=== PATIENT | female | born 1960 | race Caucasian/White ===

== ENCOUNTER → 2017-01-22 | Outpatient (CLI) | payer BC ==
[~2017-01-22] MED LIST: ETHY1TAB6 PO; MULT-506 PO
--- NOTE | 2017-01-23 13:13 | MAMMOGRAPHY REPORT ---
BILATERAL DIGITAL SCREENING MAMMOGRAM TOMOSYNTHESIS WITH CAD: 01/22/2017 CLINICAL HISTORY: Routine screening. Patient has no complaints. TECHNIQUE: Breast tomosynthesis in addition to standard 2D mammography was performed. Current study was also evaluated with a Computer Aided Detection (CAD) system. COMPARISON: Comparison is made to exams dated: 01/27/2016 mammogram, 01/27/2015 mammogram, 01/26/2014 m ammogram, 01/27/2013 mammogram, 02/01/2012 mammogram, and 01/30/2011 mammogram - [facility]. BREAST COMPOSITION: The tissue of both breasts is heterogeneously dense, which may obscure small mas ses. FINDINGS: The parenchymal pattern is unchanged. No developing mass, architectural distortion or clus ter of suspicious microcalcifications is seen in either breast. IMPRESSION: ACR BI-RADS CATEGORY 2: BENIGN There is no mammographic evidence of malignancy. A 1 year screening mammogram is recommended. The pa tient will receive written notification of the results. Approximately 10% of breast cancers are not detected with mammography. A negative mammographic report should not delay biopsy if a clinically suggestive mass is present. Norma Black M.D. ay/:01/22/2017 16:49:53 [employer]: Bobbi WEATHERS(R)(M), [facility] letter sent: Normal 1/2 BI-RADS Code: ACR BI-RADS Category 2: Benign
== END | disposition home or self-care (01) ==
LOC: C.MAMM 15:18
PROVIDERS: ATTEND Family Medicine
DX: Z12.31 Encounter for screening mammogram for malignant neoplasm of breast (principal)

== ENCOUNTER 2017-12-30 22:57 | Emergency (ER) | payer BC, OTHER ==
[~2017-12-30] VITALS: Ht 162.6 cm; Wt 61.5 kg
[2017-12-30 23:03] VITALS: TEMP 36.7; Ht 162.6 cm; Wt 61.5 kg
--- NOTE | 2017-12-30 23:27 | EMERGENCY ROOM VISIT NOTE ---
History Report prepared by Sheila: Rajani Hu Under the Supervision of: Dr. Ryan Becerra M.D. 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 She states she was taking her contacts out when she noticed blood in her left eyeball. Moving her eyes to the right hurts her but she rates it as a 1/10 in severity, The patient notes she is not on any blood thinning medications. She has been in baseline health lately. She has not suffered trauma. She does not take any blood thinners. She has not noticed and issues with her vision. 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 A total of 10 systems reviewed and were otherwise negative. Past Medical & Surgical Medical Problems: (1) KHADAR EMMY LOWER JAW BONE (2) Benign neoplasm of ovary (3) No Known Active Medical Problems Family History No pertinent family history Social History Smoking Status: Never Smoker Marital Status: Housing Status: lives with family Occupation Status: employed Current/Historical Medications Scheduled Ethynodiol Diacet & Eth Estrad (Zovia ), 1 TAB PO DAILY Multivitamin (Multivitamin), 1 TAB PO DAILY Allergies Coded Allergies: No Known Allergies (Verified , 06/14/16) Physical Exam Vital Signs Date Time Temp Pulse Resp B/P (MAP) Pulse Ox O2 Delivery O2 Flow Rate FiO2 12/30/17 23:39 89 16 143/70 100 12/30/17 23:03 36.7 89 16 143/70 100 Room Air Physical Exam GENERAL: Sitting on the stretcher, in no distress . Wearing glasses. HEENT: Pupils are equal and reactive to light. Extraocular muscles intact. Fairly large subconjunctival hemorrhage to the lateral portion of the left eye with some edema/protrusion of the hemorrhage. No active bleeding. No obvious facial trauma. Clear tearing from the left eye. NEURO: Awake and alert, oriented x 3. No focal motor deficits. Medical Decision & Procedures Medications Administered Medications (Trade) Dose Ordered Sig/Tarun Route Start Time Stop Time Status Last Admin Dose Admin Artificial Tears (Lacri-Lube Oph Oint) 1 appln NOW ONCE OP 12/30/17 23:30 12/30/17 23:31 DC 12/30/17 23:37 1 APPLN ED Course 2309: The patient was evaluated in room A11. A complete history and physical exam was performed. 2318: I discussed the patient's case with Dr. Patel, Ophthalmology. He states the only thing the patient has to worry about is eye dryness. He states the patient can go home and follow up with her eye doctor. 2321: Her visual acuity is 20/40 in both eyes. 2330: Ordered Artificial Tears 1 appln OP 233: Reevaluated the patient. Discussed results and discharge instructions: She verbalized understanding and agreement. The patient is ready for discharge. Medical Decision Differential diagnosis: Etiologies such as corneal scratch, subconjunctival hemorrhage, coagulopathy, extraocular muscle entrapment, hyphema, as well as others were entertained. Patient presents with left eye redness. She has a large left-sided subconjunctival hemorrhage. No pupillary irregularity, no hyphema. Extraocular muscles are intact and full. She is not on any type of blood thinning medication. Her vision is 20/40 in both eyes. I discussed the case with ophthalmology head of store operations. The patient can be discharged with aggressive eye lubrication. She can follow with her eye doctor. No emergency intervention required. Medication Reconcilliation Current Medication List: was personally reviewed by me Blood Pressure Screening Patient's blood pressure: Elevated blood pressure Blood pressure disposition: Elevated BP felt to be situational Consults Time Called: 2314 Consulting Physician: Dr. Patel, Ophthalmology Returned Call: [phone] I discussed the patient's case with Dr. Patel, Ophthalmology. He states the only thing the patient has to worry about is eye dryness. He states the patient can go home and follow up with her eye doctor. Impression Primary Impression: Subconjunctival hemorrhage Scribe Attestation The scribe's documentation has been prepared under my direction and personally reviewed by me in its entirety. I confirm that the note above accurately reflects all work, treatment, procedures, and medical decision making performed by me. Departure Information Dispostion Home / Self-Care Referrals Marc Ventura M.D. (PCP) Forms HOME CARE DOCUMENTATION FORM, IMPORTANT VISIT INFORMATION, WORK / SCHOOL INSTRUCTIONS Patient Instructions My [facility] Additional Instructions ointment to the eye every 3-4 hours cool compresses may soothe it some see your eye doctor this week for a recheck no contacts until this is better return if worsening
[2017-12-30] MEDS ORDERED: ARTIFICIAL TEARS OP OINT 3.5 GM TUBE OP ONE (23:30)
[2017-12-30 23:39] VITALS: BP 143/70; PULSE 89; O2SAT 100
== END 2017-12-30 23:40 | disposition home or self-care (01) ==
LOC: C.EDB 23:00 → C.EDA 23:40
DX: H11.32 Conjunctival hemorrhage, left eye (principal)